=== PATIENT | male | born 1985 | race Caucasian/White ===

== ENCOUNTER 2023-09-21 13:14 | Emergency (ER) | payer OTHER ==
[~2023-09-21] VITALS: Ht 170.2 cm; Wt 103.0 kg
[2023-09-21 13:45] VITALS: BP 103/58; PULSE 83; RESP 18; TEMP 97.8; O2SAT 96
[2023-09-21 14:55] LABS: BASOPHILS % (AUTO) 0.4 % (0.0-2.0); EOSINOPHILS % (AUTO) 0.4 % (0.0-4.0); HEMATOCRIT 44.2 % (36-52); HEMOGLOBIN 14.8 g/dL (12.0-18.0); LYMPHOCYTES # (AUTO) 2.6 K/uL (2.0-11.5); LYMPHOCYTES % (AUTO) 25.8 % (20.5-51.1); MEAN CORPUSCULAR HEMOGLOBIN 31 pg (27-31); MEAN CORPUSCULAR HGB CONC 34 g/dL (33-37); MEAN CORPUSCULAR VOLUME 93.3 fL (80-94); MONOCYTES % (AUTO) 10.4 % (1.7-9.3); NEUTROPHILS # (AUTO) 6.3 K/uL (1.8-7.7); PLATELET COUNT (AUTO) 263 K/uL (140-450); RED BLOOD CELL COUNT(AUTO) 4.74 MIL/uL (4.20-6.10); RED CELL DISTRIBUTION WIDTH 12.9 % (11.6-13.7); WHITE BLOOD COUNT (AUTO) 10.1 K/uL (4.8-10.8)
[2023-09-21] MEDS: ONDANSETRON 4 MG ODT PO ONE (15:02)
[2023-09-21] MEDS: FAMOTIDINE 20 MG TAB PO ONE (15:03)
[2023-09-21] MEDS: DEXAMETHASONE 10 MG/ML VIAL PO ONE (15:04)
[2023-09-21] MEDS: ALUMINUM HYD/MAG/SIMETHICONE 30 ML UDC PO ONE (15:04)
[2023-09-21 15:17] LABS: ALANINE AMINOTRANSFERASE 53 U/L (12-78); ALBUMIN 3.8 g/dL (3.4-5.0); ALKALINE PHOSPHATASE 56 U/L (50-136); ASPARTATE AMINOTRANSFERASE 26 U/L (15-37); BILIRUBIN,DIRECT 0.2 mg/dL (0.0-0.3); TOTAL BILIRUBIN 0.7 mg/dL (0.0-1.0)
[2023-09-21 15:22] LABS: ANION GAP 12.2 (8-16); CALCIUM 8.6 mg/dL (8.5-10.1); CARBON DIOXIDE 27.1 mmol/L (21-32); POTASSIUM 3.3 mmol/L (3.5-5.1)
[2023-09-21] MEDS: LOPERAMIDE 2 MG CAP PO ONE (15:23)
[2023-09-21] MEDS ORDERED: ALUM355S59 PO (15:49)
[2023-09-21] MEDS ORDERED: FAMO-90 PO (15:49)
[2023-09-21 15:58] VITALS: BP 137/80; PULSE 81; RESP 16; TEMP 98.6; O2SAT 98
== END 2023-09-21 15:59 | disposition home or self-care (01) ==
LOC: MED 13:14
DX: R10.13 Epigastric pain (principal); R19.7 Diarrhea, unspecified; R07.89 Other chest pain; L50.9 Urticaria, unspecified; Z79.899 Other long term (current) drug therapy; Z88.8 Allergy status to other drugs, medicaments and biological substances
CPT/HCPCS: 36415; 71045; 80048; 80076; 83690; 84484; 85025; 93005; 99285; J1100; Q0162